=== PATIENT | male | born 1945 | race Caucasian/White ===

== ENCOUNTER 2018-08-12 10:13 | Emergency (ER) | payer MEDICARE ==
[2018-08-12] MEDS ORDERED: ASPIRIN 81 MG TABLET, CHEWABLE PO ONE (11:17)
--- NOTE | 2018-08-12 11:33 | ER Document Report ---
ED Cardiac - General TRAVEL OUTSIDE OF THE [place] IN LAST 30 DAYS: No <GEOFFREY GARZA - Last Filed: 08/12/18 18:00> <JEFFREY BLACKWOOD E - Last Filed: 08/13/18 15:59> - General Chief Complaint: Chest Pain Stated Complaint: CHEST PAIN Time Seen by Provider: 08/12/18 10:53 Primary Care Provider: STEWART MILAN MD [ACTIVE STAFF] - Follow up as needed Notes: 73-year-old male with a significant cardiac history multiple episodes of ACS status post stents, a AAA with TEVAR repair currently being investigated for concern for endovascular leak presents to the emergency department for acute chest pain x2.5 hours. Patient said the pain started at 9 AM as a pressure so he took a nitroglycerin sublingual tablet and he said it "made me go blind" but when clarifying he said it just made his vision go blurry, he became dizzy and acutely dyspneic and he felt like that he was "going to pass out". He was nauseated but did not have any vomiting, denied diaphoresis, denied any abdominal pain. Patient is a minimum [id number] history of smoking and an active smoker. 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 Gallardo out of [facility] in [place] but has privileges at [facility]. When I met the patient he was conversing and did not appear to be acutely short of breath but did appear to be in mild distress. Patient looked peaked. Initial vital signs he was bradycardic at 50 and blood pressure was 104/56. Patient is a full code. (GEOFFREY GARZA) - Related Data Allergies/Adverse Reactions: No Known Allergies Allergy (Verified 08/12/18 10:13) Past Medical History - Social History Smoking Status: Unknown if Ever Smoked Chew tobacco use (# tins/day): No Frequency of alcohol use: None Drug Abuse: None Family History: None Patient has suicidal ideation: No Patient has homicidal ideation: No - Past Medical History Cardiac Medical History: Reports: Hx Hypercholesterolemia, Hx Hypertension Pulmonary Medical History: Reports: Hx COPD Renal/ Medical History: Denies: Hx Peritoneal Dialysis Past Surgical History: Reports: Hx Cardiac Surgery - Stent placement <GEOFFREY GARZA - Last Filed: 08/12/18 18:00> Review of Systems - Review of Systems Constitutional: See HPI Cardiovascular: See HPI Respiratory: See HPI Gastrointestinal: See HPI Neurological/Psychological: See HPI <GEOFFREY GARZA - Last Filed: 08/12/18 18:00> Physical Exam <GEOFFREY GARZA - Last Filed: 08/12/18 18:00> - Vital signs Vitals: Temp Pulse Resp BP Pulse Ox 97.5 F 50 L 16 109/56 L 98 08/12/18 10:39 08/12/18 10:39 08/12/18 10:39 08/12/18 10:39 08/12/18 10:39 - Notes Notes: PHYSICAL EXAMINATION: Reviewed vital signs and charting by RN GENERAL: Alert, interacts well. Appears peaked and in distress HEAD: Normocephalic, atraumatic. EYES: Pupils equal and round. Extraocular movements intact. ENT: Oral mucosa moist, tongue midline. NECK: Full range of motion. Supple. Trachea midline. LUNGS: Clear to auscultation bilaterally, no wheezes, rales, or rhonchi. No respiratory distress. HEART: Bradycardia with a regular rhythm. No murmur. Strong 2+ bilateral radial pulses and strong 2+ bilateral DP pulses ABDOMEN: soft, non-tender. Non-distended. Bowel sounds present. no McBurney's point tenderness, no Danielson sign. EXTREMITIES: Moves all 4 extremities spontaneously. No edema, No cyanosis. Normal distal neurovascular exam BACK: No CVAT NEUROLOGIC: Oriented and appropriate. Normal speech. PSYCH: Normal affect, normal mood. SKIN: Warm, dry, normal turgor. No rashes or lesions noted. (GEOFFREY GARZA) Course - Laboratory Result Diagrams: 08/12/18 11:14 08/12/18 11:14 <GEOFFREY GARZA - Last Filed: 08/12/18 18:00> - Laboratory Result Diagrams: 08/12/18 11:14 08/12/18 11:14 - Diagnostic Test Radiology reviewed: Image reviewed, Reports reviewed - EKG Interpretation by [facility] EKG shows normal: Sinus rhythm Rate: Bradycardia <JEFFREY BLACKWOOD - Last Filed: 08/13/18 15:59> - Re-evaluation Re-evalutation: 08/12/18 11:42 71-year-old male with an extensive cardiac history presenting in mild distress with active chest pain. Describes it as pressure-like. I brought Dr. Blackwood into the room to assess the patient. Patient with an extensive vascular history as well. We are concerned because he is bradycardic and it is unclear if he showing an ischemic pattern in the lateral precordial leads or if it is just a bundle branch block.. We are going to get a CTA of the chest abdomen/pelvis to extend into the iliacs to ensure there is no endovascular leak. Full cardiac work-up has been initiated. Patient is denying any nitroglycerin or nitrog lycerin drip at this time because he says it gives him a severe headache. Pacing pads have been connected to the patient and the cart is outside of the room as patient is still bradycardic currently at 43. Will give him atropine 1 mg 1 time. 08/12/18 12:04 Patient responded well to the atropine and his heart rate is now 57. I called [facility] and spoke with Lyric Ferrara at the transfer center who is going to reach out to the nurse practitioner with cardiology service and the hospitalist. I will call her back once we get an initial troponin. 08/12/18 12:28 Called back into room because patient was complaining that his tongue felt swollen and it was very dry. After inspection I could visualize the oropharynx but his tongue did appear slightly swollen. After giving him some wet swabs he said he felt better and was able to swallow. He is also complaining of worsening active chest pain. While in the room patient is in acute distress and very anxious. I called Lyric Ferrara back to initiate transfer now as this patient needs to be moved. Initial troponin still pending. Creatinine 1.28 and patient has gone to [facility]. He received fentanyl 25 mcg 1 time IV and placed on O2 via nasal cannula for a saturation of 88% which she immediately responded. 08/12/18 12:54 Initial troponin returned and is negative. Patient just returned from CTA. Reassessed patient and he is stating he is feeling a little better but still appears to be in mild distress. Vital signs are heart rate 63 last blood pressure 130/74 SPO2 97% on 2 L and respiratory rate 11 and nonlabored. 08/12/18 14:[address] Valles, hospitalist at [facility]. He is requesting that we get the second troponin to see if there is potential for an inferior/posterior ischemia pattern, but has accepted the patient for transfer. The first troponin was drawn about 2.5 hours after the initial symptoms. I ini tiated Lovenox 1 mg/kg twice daily. CTA was negative for any dissection no false lumen seen. 08/12/18 18:00 Second troponin was negative. Patient's blood pressure was stable throughout patient was still bradycardic ranging from 44-60. [facility] arrived at 1730 to transfer patient. I went into the room and reassess the patient. His vital signs were stable, he was alert and oriented and appeared well. Stable for transfer. (GEOFFREY GARZA) 08/13/18 15:55 Patient was cared for with [facility]. This is a 73-year-old male with an extensive cardiac history including abdominal aortic aneurysm with significant grafting into his iliacs and renal arteries as well as a thoracic aneurysm. Patient states that prior to arrival he had a sudden onset of chest pain while at rest that was relieved with nitroglycerin. Upon arrival patient appears diaphoretic, anxious and has a heart rate of 43. Pacing pads were placed on the patient and EKG was obtained which showed the patient to be in sinus bradycardia. Patient mentioned that he was sent for imaging recently due to concern for an endovascular leak but has not gotten the results yet. CTA of the chest abdomen and pelvis were obtained and did show dilatation of the established aneurysm. PHYSICAL EXAMINATION: GENERAL: Ill-appearing, diaphoretic HEAD: Atraumatic, normocephalic. EYES: Pupils equal round and reactive to light, extraocular movements intact, sclera anicteric, conjunctiva are normal. ENT: Nares patent, oropharynx clear without exudates. Moist mucous membranes. NECK: Normal range of motion, supple without lymphadenopathy LUNGS: Breath sounds clear to auscultation bilaterally and equal. No wheezes rales or rhonchi. HEART: Bradycardic, regular rhythm without murmurs ABDOMEN: Soft, nontender, nondistended abdomen. No guarding, no rebound. No masses appreciated. Musculoskeletal: Normal range of motion, no pitting or edema. No cyanosis. NEUROLOGICAL: Cranial nerves grossly intact. Normal speech, normal gait. Normal sensory, motor exams PSYCH: Normal mood, normal affect. SKIN: Warm, Dry, normal turgor, no rashes or lesions noted. (JEFFREY BLACKWOOD) - Vital Signs Vital signs: Temp Pulse Resp BP Pulse Ox 97.8 F 50 L 9 L 139/64 H 98 08/12/18 17:33 08/12/18 10:39 08/12/18 17:31 08/12/18 17:31 08/12/18 17:31 - Laboratory Laboratory results interpreted by me: 08/12/18 08/12/18 11:14 11:14 RDW 16.4 H Potassium 5.5 H BUN 22 H Creatinine 1.28 H Est GFR (Non-Af Amer) 55 L ALT 20 L Creatine Kinase 50 L Critical Care Note - Critical Care Note Total time excluding time spent on procedures (mins): 60 <GEOFFREY GARZA - Last Filed: 08/12/18 18:00> - Critical Care Note Comments: Critical care time spent obtaining history from patient or surrogate, discussions with consultants, development of treatment plan with patient or surrogate, evaluation of patient's response to treatment, examination of patient, ordering and performing treatments and interventions, ordering and review of laboratory studies, re-evaluation of patient's condition, ordering and review of radiographic studies and review of old charts (GEOFFREY GARZA) Discharge <GEOFFREY GARZA - Last Filed: 08/12/18 18:00> <JEFFREY BLACKWOOD - Last Filed: 08/13/18 15:59> - Discharge Clinical Impression: Unstable angina Chest pain Qualifiers: Chest pain type: unspecified Qualified Code(s): R07.9 - Chest pain, unspecified Condition: Stable Disposition: [facility] Referrals: STEWART MILAN MD [ACTIVE STAFF] - Follow up as needed
[2018-08-12] MEDS ORDERED: NORMAL SALINE 1000 ML 500 ML IV ONE (11:34)
[2018-08-12] MEDS ORDERED: NORMAL SALINE 1000 ML 1,000 ML IV ONE (11:35)
[2018-08-12] MEDS ORDERED: ATROPINE SULFATE INJ 1 MG/1 ML VIAL IV ONE ×2 (11:46→17:31)
[2018-08-12 12:01] LABS: ABSOLUTE EOSINOPHILS # (AUTO) 0.2 10^3/uL (0.0-0.6); ABSOLUTE LYMPHOCYTES (AUTO) 1.6 10^3/uL (0.5-4.7); ABSOLUTE MONOCYTES (AUTO) 0.5 10^3/uL (0.1-1.4); ABSOLUTE NEUT (AUTO) 4.8 10^3/uL (1.7-8.2); BASOPHILS % (AUTO) 0.4 % (0-2); EOSINOPHILS % (AUTO) 2.7 % (0-6); HEMATOCRIT 42.1 % (37.9-51.0); HEMOGLOBIN 13.8 g/dL (13.5-17.0); MEAN CORPUSCULAR HEMOGLOBIN 29.1 pg (27.0-33.4); MEAN CORPUSCULAR HGB CONC 32.7 g/dL (32.0-36.0); MEAN CORPUSCULAR VOLUME 89 fl (80-97); MONOCYTES % (AUTO) 6.6 % (3-13); PLATELET COUNT 190 10^3/uL (150-450); RED BLOOD COUNT 4.73 10^6/uL (4.35-5.55); RED CELL DISTRIBUTION WIDTH 16.4 % (11.5-14.0); SEGMENTED NEUTROPHILS % (AUTO) 67.3 % (42-78); TOTAL CELLS COUNTED % (AUTO) 100 %; WHITE BLOOD COUNT 7.1 10^3/uL (4.0-10.5)
--- NOTE | 2018-08-12 12:09 | RADIOLOGY REPORT (SQ) ---
EXAM DESCRIPTION: CHEST SINGLE VIEW COMPLETED DATE/TIME: 08/12/2018 11:54 am REASON FOR STUDY: CP SOB COMPARISON: None. EXAM PARAMETERS: NUMBER OF VIEWS: One view. TECHNIQUE: Single frontal radiographic view of the chest acquired. RADIATION DOSE: NA LIMITATIONS: None. FINDINGS: LUNGS AND PLEURA: No opacities, masses or pneumothorax. No pleural effusion. MEDIASTINUM AND HILAR STRUCTURES: No masses. Contour normal. HEART AND VASCULAR STRUCTURES: Normal size heart. Diffusely ectatic aorta. BONES: No acute findings. HARDWARE: None in the chest. OTHER: No other significant finding. IMPRESSION: NO ACUTE RADIOGRAPHIC FINDING IN THE CHEST. TECHNICAL DOCUMENTATION: JOB ID: [id number] [employer]- All Rights Reserved Reading location - IP/workstation name: [email or web address]
[2018-08-12] MEDS ORDERED: FENTANYL CITRATE INJ/PF 100 MCG/2 ML AMPUL IV ONE (12:11)
[2018-08-12 12:21] LABS: ALANINE AMINOTRANSFERASE 20 U/L (21-72); ALBUMIN 3.9 g/dL (3.5-5.0); ALKALINE PHOSPHATASE 104 U/L (38-126); ANION GAP 8 (5-19); ASPARTATE AMINO TRANSFERASE 18 U/L (17-59); BILIRUBIN,DIRECT 0.4 mg/dL (0.0-0.4); BILIRUBIN,TOTAL 0.7 mg/dL (0.2-1.3); BLOOD UREA NITROGEN 22 mg/dL (7-20); CALCIUM 9.7 mg/dL (8.4-10.2); CARBON DIOXIDE 27 mmol/L (22-30); CHLORIDE 105 mmol/L (98-107); CREATINE KINASE 50 U/L (55-170); GLUCOSE 95 mg/dL (75-110); POTASSIUM 5.5 mmol/L (3.6-5.0); SODIUM 140.4 mmol/L (137-145); TOTAL PROTEIN 7.4 g/dL (6.3-8.2)
[2018-08-12 12:26] LABS: PROTHROMBIN TIME 13.7 SEC (11.4-15.4)
[2018-08-12 12:32] LABS: CREATINE KINASE MB 0.46 ng/mL (<4.55)
[2018-08-12 12:33] LABS: TROPONIN I < 0.012 ng/mL
--- NOTE | 2018-08-12 13:22 | RADIOLOGY REPORT (SQ) ---
EXAM DESCRIPTION: CTA CHEST; CTA ABDOMEN/PELVIS W WO COMPLETED DATE/TIME: 08/12/2018 12:52 pm REASON FOR STUDY: concern for AAA COMPARISON: None. TECHNIQUE: CT scan of the aorta extending to the iliac bifurcation performed with intravenous contra st using helical scanning technique with dynamic intravenous contrast injection. Images reviewed with lung, soft tissue, and bone windows. Reconstructed coronal and sagittal MPR images reviewed. All tess ges stored on PACS. Advanced 3D imaging as volume rendering, MIPS, SSD performed? yes All CT scanners at this facility use dose modulation, iterative reconstruction, and/or weight based d osing when appropriate to reduce radiation dose to as low as reasonably achievable (ALARA). [facility]: Dose Right [facility]: CareDose [facility]: Dose Right [facility]: Teradose 4D [facility]: [employer] CONTRAST TYPE AND DOSE: contrast/concentration: Isovue 350.00 mg/ml; Total Contrast Delivered: 75.0 ml; Total Saline Delivered: 75.0 ml RENAL FUNCTION: BUN 22 creatinine 1.28 LIMITATIONS: None. FINDINGS: AORTA AND VESSELS: No aortic dissection identified. 5 cm aneurysmal dilatation of the arash cending thoracic aorta with a large amount of posterior wall soft plaque. There is a long segment ab dominal aneurysm aortic stent graft from the level of the SMA through the iliac bifurcation, the abdo bassem aortic aneurysm measures 4.0 cm in greatest dimension with moderate soft plaque. Bilateral com mon iliac artery stents are present. The distal right common iliac shows a 3.1 cm aneurysm with mode rate soft plaque. The celiac, SMA, and bilateral renal artery origin stents appear patent. LUNGS: 2 x 1 cm tubular nodular area in the posterior aspect of the left upper lobe with adjacent arc hitectural distortion and interstitial changes. Small area of ground-glass opacity in the subpleural location of the anterior -lateral right upper lobe. Small areas of subpleural scarring -nodularity in the lingula and right middle lobe. No pleural effusion. There is a 2.1 cm a right infrahilar lym ph node. LIVER: Normal size. No masses or dilated ducts. SPLEEN: Normal size. No focal lesions. PANCREAS: No masses. No significant calcifications. No adjacent inflammation or peripancreatic fluid collections. Pancreatic duct not dilated. GALLBLADDER: No identified stones by CT criteria. No inflammatory changes to suggest cholecystitis. ADRENAL GLANDS: No significant masses or asymmetry. RIGHT KIDNEY AND URETER: No mass, calculi or urinary tract obstruction. Lower pole cysts. LEFT KIDNEY AND URETER: No mass or urinary tract obstruction. Small parenchymal stones. RETROPERITONEUM: No retroperitoneal adenopathy, hemorrhage or masses. BOWEL AND PERITONEAL CAVITY: No masses or inflammatory changes. No free fluid or peritoneal masses. APPENDIX: Normal. ABDOMINAL WALL: No masses. No hernias. BONY STRUCTURES: No acute findings. 3-D IMAGING: Confirms the above findings. OTHER: No other significant finding. IMPRESSION: No aortic dissection identified. 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 There is a long segment abdominal aneurysm aortic stent graft from the level of the SMA through the iliac bifurcation, the abdominal aortic aneu rysm measures 4.0 cm in greatest dimension with moderate soft plaque. Bilateral common iliac artery stents are present. The distal right common iliac shows a 3.1 cm aneurysm with moderate soft plaque. The celiac, SMA, and bilateral renal artery origin stents appear patent. 2 x 1 cm tubular nodular area in the posterior aspect of the left upper lobe with adjacent architectu ral distortion and interstitial changes. There is a 2.1 cm a right infrahilar lymph node. Consider a dditional outpatient evaluation with PET-CT. TECHNICAL DOCUMENTATION: JOB ID: [id number] Quality ID # [id number]: Final reports with documentation of one or more dose reduction techniques (e.g., Au tomated exposure control, adjustment of the mA and/or kV according to patient size, use of iterative reconstruction technique) 2010 [employer]- All Rights Reserved Reading location - IP/workstation name: [email or web address]
[2018-08-12] MEDS ORDERED: ENOXAPARIN SODIUM INJ 100 MG/1 ML DISP.SYRIN SUBCUT SCH (14:30)
[2018-08-12 17:33] VITALS: BP 139/64
--- NOTE | 2018-08-12 22:51 | EKG REPORT ---
SEVERITY:- ABNORMAL ECG - SINUS RHYTHM RIGHT BUNDLE BRANCH BLOCK : Confirmed by: Micah Perez 12-Aug-2018 22:51:15
--- NOTE | 2018-08-12 22:51 | EKG REPORT ---
SEVERITY:- ABNORMAL ECG - SINUS BRADYCARDIA RIGHT BUNDLE BRANCH BLOCK : Confirmed by: Micah Perez 12-Aug-2018 22:51:20
== END 2018-08-12 17:51 | disposition short-term general hospital (02) ==
LOC: ER 10:13
DX: I20.0 Unstable angina (principal); R07.9 Chest pain, unspecified; R42 Dizziness and giddiness; I10 Essential (primary) hypertension; J44.9 Chronic obstructive pulmonary disease, unspecified
CPT/HCPCS: 93005; 99291; 96372; 96361; 96374; 36415; 82553; 82550; 85025; 85610; 80053; 84484; 71045; 71275; 74174; 93010; A9270; J0461; J3010; J7030; J1650